=== PATIENT | female | born 2000 | race Caucasian/White ===

== ENCOUNTER 2023-09-01 19:36 | Emergency (ER) | payer BC ==
[~2023-09-01] VITALS: Ht 167.6 cm; Wt 52.3 kg
[2023-09-01 19:53] VITALS: BP 127/59; TEMP 98.4
[2023-09-01 22:50] VITALS: PULSE 80
== END 2023-09-01 22:51 | disposition home or self-care (01) ==
LOC: COL.ER 19:36
DX: S00.93XA Contusion of unspecified part of head, initial encounter (principal); R55 Syncope and collapse; M79.641 Pain in right hand; M79.89 Other specified soft tissue disorders; W21.07XA Struck by softball, initial encounter; Y93.64 Activity, baseball